=== PATIENT | male | born 1955 | race Caucasian/White ===

== ENCOUNTER → 2019-12-28 | Outpatient (CLI) | payer MEDICARE ==
[2019-12-28 13:36] LABS: EOS # 0.1 (0.04-0.40); EOS % 1.5 % (0.0-4.0); HEMOGLOBIN 14.6 g/dL (13.5-18.0); LYMPH# 1.5 (1.50-4.00); MEAN CELL VOLUME 87 fl (78-100); MEAN CORPUSCULAR HEMOGLOBIN 29 pg (27-31); MEAN CORPUSCULAR HGB CONC 33 g/dL (33-37); MEAN PLATELET VOLUME 9.6 fl (7.4-10.4); MONO # 0.6 (0.20-0.80); NEU # 5.6 (1.40-6.50); PLATELET COUNT 302 K/mm3 (130-400); RED BLOOD COUNT 5.08 M/mm3 (4.20-5.60); WHITE BLOOD COUNT 7.8 K/mm3 (4.8-10.8)
[2019-12-28 13:47] LABS: ALBUMIN 4.6 g/dL (3.4-4.8); POTASSIUM 3.9 mmol/L (3.5-5.1)
[2019-12-28 13:48] LABS: SODIUM 140 mmol/L (136-145)
[2019-12-28 13:49] LABS: CALCIUM 9.4 mg/dL (8.3-10.5)
[2019-12-28 13:50] LABS: GLUCOSE 117 mg/dL (75-110); TOTAL PROTEIN 7.2 g/dL (6.2-8.1)
[2019-12-28 13:51] LABS: CARBON DIOXIDE 23 mmol/L (23-31)
[2019-12-28 13:52] LABS: TOTAL BILIRUBIN 0.5 mg/dL (0.2-1.2)
[2019-12-28 13:55] LABS: AST-SGOT 21 U/L (5-34)
[2019-12-28 13:56] LABS: ALT/SGPT 35 U/L (0-55)
== END ==
LOC: LAB 13:17
PROVIDERS: Nurse Practitioner
DX: M19.021 Primary osteoarthritis, right elbow (principal); M25.421 Effusion, right elbow

== ENCOUNTER → 2021-11-12 | Day surgery (SDC) | payer MEDICARE | END | disposition home or self-care (01) | LOC: MSO 09:15 | DX: K63.5 Polyp of colon (principal); K57.30 Diverticulosis of large intestine without perforation or abscess without bleeding; Z80.0 Family history of malignant neoplasm of digestive organs; K92.1 Melena; G47.33 Obstructive sleep apnea (adult) (pediatric); E11.9 Type 2 diabetes mellitus without complications; Z79.84 Long term (current) use of oral hypoglycemic drugs | CPT/HCPCS: 00811; J2704; J7120 ==